=== PATIENT | male | born 1960 | race Caucasian/White ===

== ENCOUNTER 2025-04-05 07:43 | Outpatient (AMB) | payer OTHER, SELFPAY ==
--- NOTE | 2025-04-05 07:55 | A.OFFPC_ITS ---
Vital Signs 04/05/25 08:12 Height 5 ft 9.49 in Weight 184 lb BMI 26.8 BP 180/80 H Blood Pressure Location Lt brachial Position Sitting Respiration 16 Pulse 61 Pulse Source Pulse Oximeter Temp 98.1 F Temp Source Oral Pulse Oximetry (%) 100 Oxygen Delivery Method Room Air Intake Visit Reasons: [employer] // Cardiovascular issues, kidney stones Intake Note: establish care kidney stones 1 month ago. Accompanied by: Self / Same As Patient Allergies erythromycin base Allergy (Mild, Verified 04/05/25 08:05) adverse reaction Tobacco use date assessed: 04/05/25 Dental Screening Dental Screen Date: 04/05/25 Did you have a dental visit in the last 12 months?: No Did you have a dental problem in the last 6 months where you did not have access to dental care?: No Was dental information given to patient?: No HPI HPI Comments History of Present Illness Details History of Present Illness The patient is a 64-year-old male presenting for a wellness visit and management of chronic conditions. Myocardial infarction: - History of myocardial infarction a few years ago, currently under cardiology care at [facility]. - Patient has five stents placed and an ejection fraction of 30-35%, indicating systolic heart failure. - Scheduled for an echocardiogram at the end of the month. Kidney stones: - Recent episode of kidney stones, initi ally suspected as appendicitis, resolved spontaneously after emergency visit. - Advised to increase water intake to pr event recurrence. Skin lesions: - Long-standing skin lesions on the scal p and forearm, with a family history of skin cancer in the mother. - Referral to dermatology for further ev aluation. Hypertension: - Blood pressure recorded at 180/80 mmHg during the visit, attributed to white coat syndrome. - Patient reports normal blood pressure readings at home. Health Maintenance - Colon cancer screening with Cologuard or colonoscopy discussed. - Lung cancer screening with low-dose CT scan recommended due to smoking history. - Shingles and pneumococcal vaccinations recommended. Review of Systems - Cardiovascular: Reports leg weakness a nd burning sensation during exertion. Denies chest pain or dyspnea. - Genitourinary: Reports recent kidney s tones, resolved spontaneously. - Dermatological: Reports long-standing skin lesions on scalp and forearm. 10-point ROS reviewed and negative excep t as noted in HPI Medications - Entresto for heart failure - Spironolactone for heart failure - Farxiga for heart failure - Carvedilol for heart failure - Atorvastatin for hyperlipidemia - Aspirin for myocardial infarction prev ention Substance Use History - Former smoker, quit 7 years ago after 20 years of smoking. Past Medical History - Myocardial infarction with subsequent stent placement - Systolic heart failure with reduced ej ection fraction - Hypertension - Kidney stones Past Surgical History - Stent placement for coronary artery di michaela Family History - Mother with history of skin cancer Social History - Retired senior infrastructure architect Physical Exam General: No apparent distress. Alert and oriented x 3. Head:Normocephalic, atraumatic Eyes: Pupils equal, round, and reactive to light. Extraocular movements intact Throat: Oropharynx clear. Mucus membranes moist Neck: Supple. No left anterior descending artery distention. No jugular vein distention. No bruit. Cardiovascular: Regular rate and rhythm. Normal S1 and S2. Nomurmurs, rubs, or gallops Lungs: Clear to auscultation bilaterally. Breath sounds equal bilaterally. No rales, ronchi, or wheezes. Abdomen: Non-tender. Non-distended. Bowel sounds auscultated. Nohepatosplenomegaly. No mass/rebound/guarding Extremities: No clubbing, cyanosis, and edema. 2+ pulses Neuro: Central nerves II-XII grossly intact. Motor/sensory intact. Reflexes 2. Gait normal Skin: Warm, dry, and intact. No rash. Patient has concern about skin lesions on top of scalp and right forearm. 2 x 2 hyperpigmental lesion on the right for earm. 1 x 1 mm lesions on the scalp, 3 dark origin. Discussion Notes During the visit, we discussed the patient's history of myocardial infarction and current management with cardiology. We reviewed the recent kidney stone episode and the importance of hydration to prevent recurrence. The patient was advised on the need for dermatological evaluation of skin lesions, given the family history of skin cancer. We also discussed preventative care measures, including colon cancer screening options and the importance of vaccinations for shingles and pneumococcal disease. The patient was informed about the need for a lung cancer screening due to his smoking history. Follow-up with cardiology and dermatology was recommended, and baseline labs were ordered to assess overall health status. Plan 1. Old myocardial infarction I25.2 - Continue current cardiac medications a nd follow-up with cardiology for management. 2. Personal history of urinary calculi Z87.442 - Increase fluid intake and consider fur ther testing if symptoms recur. 3. Disorder of the skin and subcutaneous tissue, unspecified L98.9 - Referral to dermatology for further ev aluation. 4. Essential (primary) hypertension I10 - Monitor blood pressure at home and rep ort changes. Patient Instructions - Continue taking all prescribed heart m edications as directed. - Increase water intake to help prevent kidney stones. - Monitor blood pressure at home and inf orm the doctor of any significant changes. - Schedule and attend follow-up appointm ents with cardiology and dermatology. - Consider colon cancer screening option s and discuss with insurance. - Check with insurance about lung cancer screening and vaccinations. PFSH Family History (Updated 04/05/25 @ 08:11 by Francisco Keyes MA) Father Multiple myeloma Heart disease Diabetes Mother High blood pressure Diabetes Vascular disease Social History (Updated 04/05/25 @ 07:57 by Francisco Keyes MA) Housing: House Alcohol intake: current Alcohol intake frequency: does not drink Patient Tobacco Use Status: Former Tobacco user service: No Current occupational status: retired Cognitive needs: No Hearing needs: No Vision needs: Yes (readers) Questionnaire PHQ-9 Over the last 2 weeks, how often have you been bothered by any of the following problems? 1. Little interest or pleasure in doing things: not at all 2. Feeling down, depressed, or hopeless: not at all 3. Trouble falling or staying asleep, or sleeping too much: not at all 4. Feeling tired or having little energy: several days 5. Poor appetite or overeating: not at all 6. Feeling bad about yourself - or that you are a failure or have let yourself or your family down: not at all 7. Trouble concentrating on things, such as reading the newspaper or watching television: not at all 8. Moving or speaking so slowly that other people could have noticed. Or the opposite - being so fidgety or restless that you have been moving around a lot more than usual: not at all 9. Thoughts that you would be better off or of hurting yourself in some way: not at all Total score: 1 Depression Screening Interpretation: Negative Depression Screening Done: Yes Source: Developed by Drs. Roland Silverio, Yasmine Monroe, Jose J Agudelo and colleagues, with an educational vida from [employer]. Thrive Questionnaire Date Thrive assessed: 04/05/25 I am a: Patient What is your living situation today?: I have a steady place to live Within the past 12 months, did the food you bought not last and you didn't have the money to get more?: I choose not to answer this question Within the past 12 months, did you worry whether your food would run out before you got money to buy more?: I choose not to answer this question Do you have trouble paying for medicines?: I choose not to answer this question Do you have trouble getting transportation to medical appointments?: I choose not to answer this question Do you have trouble paying your heating and electricity bill?: I choose not to answer this question Do you have trouble taking care of your child, family member or friend?: I choose not to answer this question Are you currently unemployed and looking for a job?: I choose not to answer this question Are you interested in more education?: Yes Please select the resources that you would like help with: None Currently or been in a relationship where the following occur: No concerns reported THRIVE Score: 0 AUDIT C Alcohol Use Questionnaire (AUDIT-C) 1. How often do you have a drink containing alcohol?: Never 3. How often do you have six or more drinks on one occasion?: Never Total Score: 0 SHANNAN-7 AMB Questionnaire SHANNAN-7 Date SHANNAN - 7 assessed: 04/05/25 Feeling nervous, anxious, or on edge: 0 = Not at all Not being able to stop or control worryin = Not at all Worrying too much about different things: 1 = Several days Trouble relaxin = Not at all Being so restless that it is hard to sit still: 0 = Not at all Becoming easily annoyed or irritable: 1 = Several days Feeling afraid as if something awful might happen: 0 = Not at all Total SHANNAN-7 score (0-4 normal; 5-9 mild; 10-14 moderate; 15-21 severe): 2 Source: Developed by Drs. Roland Silverio, Yasmine Monroe, Jose J Agudelo and colleagues, with an educational vida from [employer]. Physical exam (Primary Care) Tobacco/Smoking Status: Tobacco use Status Tobacco use date assessed 04/05/25 04/05/25 07:57 Patient Tobacco Use Status Never used Tobacco 04/05/25 07:57 PHQ-9: PHQ-9 Score PHQ-9: Total score 1 04/05/25 07:57 Depression Screening Interpretation: Negative Thrive Assessment: Date of Thrive Assessment Date Thrive assessed 04/05/25 04/05/25 07:57 Currently or been in a relationship where the following occur: No concerns reported Coding Level of Care Code New Pt Level 3 (92562) Diagnoses Establishing care with new doctor, encounter for Z76.89 Routine lab draw Z01. Encounter for screening, unspecified Z13.9 Counseling, unspecified Z71.9 Screening for depression Z13.31 History of kidney stones Z87.442 History of myocardial infarction I25.2 History of nicotine use Z87.891 History of coronary artery stent placement Z95.5 Heart failure, systolic I50.20 Lower extremity pain M79.606 Skin abnormality L98.9 Elevated blood pressure reading R03.0 Assessment & Plan Assessment & Plan (1) Establishing care with new doctor, encounter for: Code(s): Z76.89 - Persons encountering health services in other specified circumstances (2) Routine lab draw: Code(s): Z01.89 - Encounter for other specified special examinations (3) Encounter for screening, unspecified: Code(s): Z13.9 - Encounter for screening, unspecified (4) Counseling, unspecified: Code(s): Z71.9 - Counseling, unspecified (5) Screening for depression: Code(s): Z13.31 - Encounter for screening for depression (6) History of kidney stones: Code(s): Z87.442 - Personal history of urinary calculi (7) History of myocardial infarction: Code(s): I25.2 - Old myocardial infarction (8) History of nicotine use: Code(s): Z87.891 - Personal history of nicotine dependence (9) History of coronary artery stent placement: Code(s): Z95.5 - Presence of coronary angioplasty implant and graft (10) Heart failure, systolic: Code(s): I50.20 - Unspecified systolic (congestive) heart failure (11) Lower extremity pain: Code(s): M79.606 - Pain in leg, unspecified (12) Skin abnormality: Code(s): L98.9 - Disorder of the skin and subcutaneous tissue, unspecified (13) Elevated blood pressure reading: Code(s): R03.0 - Elevated blood-pressure reading, without diagnosis of hypertension Plan Orders: Orders Comprehensive Met. Panel Today Z13.9 - Encounter for screening, unspecified, Z76.89 - Persons encountering health services in other specified circumstances Hemoglobin A1c Today Z13.9 - Encounter for screening, unspecified, Z76.89 - Persons encountering health services in other specified circumstances Hepatitis B Surface Antibody Today Z13.9 - Encounter for screening, unspecified, Z76.89 - Persons encountering health services in other specified circumstances Hepatitis B Surface Antigen Today Z13.9 - Encounter for screening, unspecified, Z76.89 - Persons encountering health services in other specified circumstances Hepatitis C Antibody Today Z13.9 - Encounter for screening, unspecified, Z76.89 - Persons encountering health services in other specified circumstances Lipid Panel Today Z13.9 - Encounter for screening, unspecified, Z76.89 - Persons encountering health services in other specified circumstances UA CC w/rflx Micro + Cult Today Z13.9 - Encounter for screening, unspecified, Z76.89 - Persons encountering health services in other specified circumstances Vitamin D 1,25 dihydroxy Today Z13.9 - Encounter for screening, unspecified, Z7 6.89 - Persons encountering health services in other specified circumstances Uric Acid Today Z87.442 - Personal history of urinary calculi Complete Blood Count Auto Diff Today Z13.9 - Encounter for screening, unspecified, Z76.89 - Persons encountering health services in other specified circumstances HIV Ab/Ag Today Z13.9 - Encounter for screening, unspecified, Z76.89 - Persons encountering health services in other specified circumstances Magnesium Today Z13.9 - Encounter for screening, unspecified, Z76.89 - Persons encountering health services in other specified circumstances TSH reflex Free T4 Today Z13.9 - Encounter for screening, unspecified, Z76.89 - Persons encountering health services in other specified circumstances Referrals Cardiology Referral I50.9 - Heart failure, unspecified Dermatology Referral L98.9 - Disorder of the skin and subcutaneous tissue, unspecified
[2025-04-05 08:12] VITALS: BP 180/80; PULSE 61; RESP 16; TEMP 36.7; O2SAT 100; BMI 26.8
== END 2025-04-05 08:57 | disposition home or self-care (01) ==
LOC: HO.HMCFMS 07:44
PROVIDERS: PCP Student in an Organized Health Care Education/Training Program; Visit Provider Student in an Organized Health Care Education/Training Program
DX: Z76.89 Persons encountering health services in other specified circumstances (principal); Z01.89 Encounter for other specified special examinations; Z13.9 Encounter for screening, unspecified; Z71.9 Counseling, unspecified; Z13.31 Encounter for screening for depression; Z87.442 Personal history of urinary calculi; I25.2 Old myocardial infarction; Z87.891 Personal history of nicotine dependence; Z95.5 Presence of coronary angioplasty implant and graft; I50.20 Unspecified systolic (congestive) heart failure; M79.606 Pain in leg, unspecified; L98.9 Disorder of the skin and subcutaneous tissue, unspecified; R03.0 Elevated blood-pressure reading, without diagnosis of hypertension

== ENCOUNTER 2025-05-13 13:08 | Outpatient (AMB) | payer OTHER, SELFPAY ==
--- NOTE | 2025-05-13 13:14 | A.OFFPC_ITS ---
Vital Signs 05/13/25 13:15 Height 5 ft 9.49 in Weight 185 lb BMI 26.9 BP 183/77 H Blood Pressure Location Lt brachial Position Sitting Respiration 16 Pulse 51 Pulse Source Pulse Oximeter Temp 97.9 F Temp Source Oral Pulse Oximetry (%) 99 Oxygen Delivery Method Room Air Intake Visit Reasons: Labs f/u reschedule from 05/04 Intake Note: establish care kidney stones 1 month ago. Accompanied by: Self / Same As Patient Allergies erythromycin base Allergy (Mild, Verified 05/13/25 13:15) adverse reaction Medication List - Last Reconciled 05/13/25 by Cruz Saleh MD aspirin 81 mg PO DAILY atorvastatin 80 mg PO BEDTIME carvedilol 12.5 mg PO BID dapagliflozin propanediol (Farxiga) 10 mg PO DAILY multivitamin 1 tab PO DAILY sacubitril-valsartan 97-103 mg 1 tab PO BID spironolactone 12.5 mg PO DAILY Tobacco use date assessed: 05/13/25 Dental Screening Dental Screen Date: 05/13/25 Did you have a dental visit in the last 12 months?: No Did you have a dental problem in the last 6 months where you did not have access to dental care?: No Was dental information given to patient?: No HPI HPI Comments History of Present Illness Details History of Present Illness The patient is a 64-year-old male presenting with a review of lab results and ongoing health concerns. Hyperbilirubinemia: The patient has a history of mildly elevated total bilirubin at 1.4 mg/dL, with the normal cutoff being 1.2 mg/dL. This condition has been monitored without immediate intervention due to the absence of significant liver enzyme abnorma lities. Biliary colic: The patient reports occasional colicky pain under the right ribcage, which has been occurring for years. The pain is not associated with any specific dietary triggers and occurs infrequently, about once or twice a year. History of kidney stones: The patient experienced kidney stones for the first time two months ago, diagnosed in the emergency department after presenting with severe pain. Following the initial episode, the patient had two more mild episodes at home, which resolved with increased fluid intake. Coronary artery disease with stent placement: The patient has a history of coronary artery disease and has undergone stent placement. The patient is currently managing the condition with lifestyle modifications and regular follow-ups. Surgical History: - Coronary artery stent placement Social History: - Previous smoker, considering lung canc er screening due to smoking history. - Recently relocated from [facility] and is adapting well to the [facility]. Diagnostic Results: - Labs: Total bilirubin mildly elevated at 1.4 mg/dL (normal <1.2 mg/dL). - Labs: Lipid panel within normal limits , LDL cholesterol below 70 mg/dL. - Labs: Hemoglobin A1c at 5.5%, indicati ng no diabetes. - Imaging: Echocardiogram shows improved heart function with ejection fraction increased to 40-45%. - Imaging: Carotid ultrasound shows no s ignificant stenosis. Past Medical History - Coronary artery disease with stent jodee cement - History of kidney stones Health Maintenance - Lung cancer screening with low-dose CT recommended due to smoking history. - Colon cancer screening with Cologuard ordered. [facility] Medical History (Updated 05/13/25 @ 13:37 by Cruz Saleh MD) Kidney stones Screening for lung cancer Total bilirubin, elevated Family History Father Multiple myeloma Heart disease Diabetes Mother High blood pressure Diabetes Vascular disease Social History Housing: House Alcohol intake: current Alcohol intake frequency: does not drink Patient Tobacco Use Status: Former Tobacco user service: No Current occupational status: retired Cognitive needs: No Hearing needs: No Vision needs: Yes (readers) Questionnaire Thrive Questionnaire Date Thrive assessed: 04/05/25 I am a: Patient What is your living situation today?: I have a steady place to live Within the past 12 months, did the food you bought not last and you didn't have the money to get more?: I choose not to answer this question Within the past 12 months, did you worry whether your food would run out before you got money to buy more?: I choose not to answer this question Do you have trouble paying for medicines?: I choose not to answer this question Do you have trouble getting transportation to medical appointments?: I choose not to answer this question Do you have trouble paying your heating and electricity bill?: I choose not to answer this question Do you have trouble taking care of your child, family member or friend?: I choose not to answer this question Do you have trouble with day-to-day activities such as bathing, preparing meals, shopping, managing finances, etc.?: No Are you currently unemployed and looking for a job?: I choose not to answer this question Are you interested in more education?: Yes Please select the resources that you would like help with: None Currently or been in a relationship where the following occur: No concerns reported THRIVE Score: 0 AUDIT C Alcohol Use Questionnaire (AUDIT-C) 2. How many drinks containing alcohol do you have on a typical day when you are drinking?: 1 or 2 3. How often do you have six or more drinks on one occasion?: Never Total Score: 0 SHANNAN-7 AMB Questionnaire SHANNAN-7 Date SHANNAN - 7 assessed: 04/05/25 Source: Developed by Drs. Roland Silverio, Yasmine Monroe, Jose J Agudelo and colleagues, with an educational vida from [employer]. Review of Systems Narrative Review of Systems - Gastrointestinal: Reports occasional colicky pain under the right ribcage, denies any specific dietary triggers. - Genitourinary: Reports history of kidney stones with recent episodes. 10-point ROS reviewed and negative except as noted in HPI Physical exam (Primary Care) Vital Signs: Last Vital Signs Temp 97.9 F 05/13/25 13:15 Pulse 51 05/13/25 13:15 Resp 16 05/13/25 13:15 BP 183/77 H 05/13/25 13:15 Pulse Ox 99 05/13/25 13:15 Oxygen Delivery Method Room Air 05/13/25 13:15 BMI result Body Mass Index 26.9 Tobacco/Smoking Status: Tobacco use Status Tobacco use date assessed 05/13/25 05/13/25 13:23 Patient Tobacco Use Status Former Tobacco user 05/13/25 13:23 Thrive Assessment: Date of Thrive Assessment Date Thrive assessed 04/05/25 05/13/25 13:23 Currently or been in a relationship where the following occur: No concerns reported Narrative Physical Exam General: Well-appearing, in no acute distress. Vital signs: Within normal limits. HEENT: Normocephalic, atraumatic. PERRLA, EOMI. Conjunctiva clear, sclera anicteric. Oropharynx clear, mucous membranes moist. TMs intact bilaterally. Neck: Supple, no lymphadenopathy, no thyromegaly, no JVD or carotid bruits. Cardiovascular: RRR, normal S1/S2, no murmurs, rubs, or gallops. Peripheral pulses 2+ and symmetric. No edema. Respiratory: Lungs clear to auscultation bilaterally, no wheezes, rales, or rhonchi. Normal effort. Abdomen: Soft, non-tender, non-distended. Normoactive bowel sounds. No hepatosplenomegaly, no masses. Reports occasional colic pain under the right ribcage, possibly related to elevated bilirubin. MSK: Full range of motion, no joint swelling or deformity. Normal gait. Skin: Warm, dry, intact. No rashes, lesions, or pallor. Neuro: Alert and oriented x3. Cranial nerves II-XII intact. Strength 5/5 throughout. Sensation intact. Reflexes 2+ symmetric. Normal coordination and gait. Psych: Appropriate mood and affect. Normal judgment and insight. Coding Level of Care Code Est Pt Level 3 (98569) Diagnoses Total bilirubin, elevated R17 Kidney stones N20.0 Screening for lung cancer Z12.2 Systolic heart failure I50.20 History of coronary artery stent placement Z95.5 History of myocardial infarction I25.2 Skin Abnormalities L98.9 Biliary colic K80.50 Elevated blood pressure reading in office with diagnosis of hypertension I10 Assessment & Plan Assessment & Plan (1) Total bilirubin, elevated: Code(s): R17 - Unspecified jaundice Category: Medical (2) Kidney stones: Code(s): N20.0 - Calculus of kidney Category: Medical (3) Screening for lung cancer: Code(s): Z12.2 - Encounter for screening for malignant neoplasm of respiratory organs Category: Medical (4) Systolic heart failure: Code(s): I50.20 - Unspecified systolic (congestive) heart failure (5) History of coronary artery stent placement: Code(s): Z95.5 - Presence of coronary angioplasty implant and graft (6) History of myocardial infarction: Code(s): I25.2 - Old myocardial infarction (7) Skin Abnormalities: Code(s): L98.9 - Disorder of the skin and subcutaneous tissue, unspecified (8) Biliary colic: Code(s): K80.50 - Calculus of bile duct without cholangitis or cholecystitis without obstruction (9) Elevated blood pressure reading in office with diagnosis of hypertension: Code(s): I10 - Essential (primary) hypertension Plan Consent Patient was informed and verbally consented to the use of an ambient scribe for clinic note documentation during this visit. Plan 1. Hyperbilirubinemia - Plan to monitor bilirubin levels with additional tests including direct bilirubin and GGT. - Abdominal ultrasound ordered to assess liver and biliary tract. 2. Biliary Colic - Abdominal ultrasound ordered to evaluate for gallstones or biliary sludge. 3. History Of Kidney Stones - Referral to urology for further evaluation and management of kidney stones. 4. Coronary Artery Disease With Stent Placement - Continue current management with lifestyle modifications and regular follow- ups. Discussion Notes I discussed with the patient the importance of monitoring bilirubin levels and the potential causes of hyperbilirubinemia, including gallstones or biliary sludge. We agreed on the need for an abdominal ultrasound and additional blood tests to further evaluate liver function. I also recommended a referral to urology for the management of kidney stones and discussed the benefits of preventative screenings such as lung cancer screening and colon cancer screening. Patient Instructions - Follow up with urology for kidney stone management. - Complete the abdominal ultrasound and additional blood tests as ordered. - Await contact from pulmonology for lung cancer screening scheduling. - Complete the Cologuard test for colon cancer screening. Medical Decision Making The patient's mildly elevated bilirubin prompted consideration of potential biliary obstruction or liver dysfunction, warranting further investigation with imaging and lab tests. Given the history of kidney stones, a referral to urology was deemed necessary for specialized management. Preventative measures, including lung and colon cancer screenings, were emphasized due to the patient's smoking history and age. Total time spent caring for the patient today was 30 minutes. This includes time spent before the visit reviewing the chart, time spent documenting, and time spent reviewing laboratory results, diagnostic imaging, medications, performing a medically necessary evaluation, counseling on diagnoses.. Orders: Orders Gamma Glutamyl Transpeptidase Today R17 - Unspecified jaundice US abdomen complete Today K80.50 - Calculus of bile duct without cholangitis or cholecystitis without obstruction, R17 - Unspecified jaundice Bilirubin Direct Today R17 - Unspecified jaundice Referrals Urology Referral N20.0 - Calculus of kidney Cologuard Test Z12.11 - Encounter for screening for malignant neoplasm of colon, Z12.12 - Encounter for screening for malignant neoplasm of rectum Pulmonology Referral Z12.2 - Encounter for screening for malignant neoplasm of respiratory organs
[2025-05-13 13:15] VITALS: BP 183/77; PULSE 51; RESP 16; TEMP 36.6; O2SAT 99; BMI 26.9
== END 2025-05-13 13:41 | disposition home or self-care (01) ==
LOC: HO.HMCFMS 13:08
PROVIDERS: PCP Student in an Organized Health Care Education/Training Program; Visit Provider Student in an Organized Health Care Education/Training Program
DX: R17 Unspecified jaundice (principal); N20.0 Calculus of kidney; Z12.2 Encounter for screening for malignant neoplasm of respiratory organs; I50.20 Unspecified systolic (congestive) heart failure; Z95.5 Presence of coronary angioplasty implant and graft; I25.2 Old myocardial infarction; L98.9 Disorder of the skin and subcutaneous tissue, unspecified; K80.50 Calculus of bile duct without cholangitis or cholecystitis without obstruction; I10 Essential (primary) hypertension